=== PATIENT | male | born 1960 | race Caucasian/White ===

== ENCOUNTER 2016-11-27 12:23 | Inpatient (IN) | payer BC ==
[~2016-11-27] VITALS: Ht 188 cm; Wt 122.5 kg
--- NOTE | 2016-11-27 12:23 | NUR ---
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 NAD NOTED. PT AAO X4, AMB WITH STEADY GAIT. RR EVEN AND UNLBAORED. PLACED ON MONITOR. PENDING MD HARRISON.
--- NOTE | 2016-11-27 12:35 | NUR ---
CJ JOINERY SETTER OUT AT BEDSIDE FOR EVAL.
[2016-11-27 12:39] LABS: BASOPHILS # (AUTO) 0.3 /CMM (0.0-0.2); BASOPHILS % (AUTO) 3.8 % (0.0-2.0); EOSINOPHILS # (AUTO) 0.1 /CMM (0.0-0.7); EOSINOPHILS % (AUTO) 1.5 % (0.0-6.0); HEMATOCRIT 44 % (39-51); HEMOGLOBIN 14.8 g/dL (13.5-17.5); LYMPHOCYTES # (AUTO) 2.2 /CMM (0.8-4.8); LYMPHOCYTES % (AUTO) 23.7 % (20.0-44.0); MEAN CORPUSCULAR HEMOGLOBIN 28 PG (26.0-33.0); MEAN CORPUSCULAR HGB CONC 34 g/dl (31.0-36.0); MEAN CORPUSCULAR VOLUME 84 fL (80-96); MONOCYTES # (AUTO) 0.7 /CMM (0.1-1.30); MONOCYTES % (AUTO) 7.7 % (2.0-12.0); NEUTROPHILS # (AUTO) 5.8 /CMM (1.8-8.9); NEUTROPHILS % (AUTO) 63.3 % (43.0-81.0); PLATELET COUNT (AUTO) 230 /CMM (150-450); RDW COEFFICIENT OF VARIATION 13.6 (11.5-15.0); RED BLOOD CELL COUNT(AUTO) 5.27 MIL/uL (4.5-6.0); WHITE BLOOD COUNT (AUTO) 9.1 K/uL (4.3-11.0)
[2016-11-27 12:46] LABS: CALCIUM, SERUM 8.2 mg/dL (8.5-10.1); CARBON DIOXIDE 25 mmol/L (21-32); CHLORIDE 104 mmol/L (98-107); GLUCOSE 89 mg/dL (74-106); POTASSIUM 3.4 mmol/L (3.5-5.1); SODIUM SERUM 138 mmol/L (136-145); UREA NITROGEN, BLOOD 9 mg/dL (7-18)
[2016-11-27 12:50] LABS: INR 1.02 (0.87-1.13); PROTHROMBIN TIME 10.6 SECS (9.5-12.7)
[2016-11-27 12:55] LABS: TROPONIN I < 0.017 ng/mL (0.00-0.056)
[2016-11-27] MEDS ORDERED: NITROGLYCERIN 0.4 MG/TAB BOTTLE ONE (12:55)
[2016-11-27] MEDS ORDERED: ASPIRIN 325 MG TABLET ONE (12:55)
[2016-11-27] MEDS ORDERED: NITROGLYCERIN 0.4 MG/TAB BOTTLE SL ONE (13:00)
[2016-11-27] MEDS ORDERED: ASPIRIN 325 MG TABLET PO ONE (13:00)
[2016-11-27] MEDS ORDERED: IOHEXOL-350 100 ML VIAL IV ONE (14:21)
[2016-11-27] MEDS ORDERED: IV NS 0.9% 250 ML IV ONE (14:21)
[2016-11-27] MEDS ORDERED: GABA-536 PO (14:36)
[2016-11-27] MEDS ORDERED: METR250T PO (14:36)
[2016-11-27] MEDS ORDERED: ESCI20TA PO (14:36)
[2016-11-27] MEDS ORDERED: AMLO10TA2 PO (14:36)
--- NOTE | 2016-11-27 14:53 | NUR ---
PT BACK FROM CT SCAN
--- NOTE | 2016-11-27 15:00 | NUR ---
REPORT GIVEN TO ZANDRA HOUSTON FOR PAOLA
[2016-11-27] MEDS ORDERED: EMTR1TAB12 PO (15:03)
[2016-11-27] MEDS ORDERED: [UNRECOGNIZED DRUG - OTHER] PO (15:03)
--- NOTE | 2016-11-27 15:30 | NUR ---
VIDEOGRAPHER NOTES PATIENT CAME ON A GURNEY FROM ER. PATIENT ABLE TO AMBULATE FROM GURNEY TO BED. A/OX3, VERBALLY RESPONSIVE, IN NO APPARENT DISTRESS. PATIENT DENIES SOB, DENIES CHEST PAIN. ALL NEEDS MET, CALL LIGHT WITHIN REACH. PATIENT ORIENTED TO ROOM AND UNIT. SKIN CLEAR AND INTACT, ON TELE MONITORING SR 80. IV LINE ON LAC AND RIGHT HAND PATENT. AWAITING ORDERS,WILL CONT TO MONITOR.
[2016-11-27] MEDS ORDERED: ZOLPIDEM TARTRATE 5 MG TABLET PO PRN (16:00)
[2016-11-27] MEDS ORDERED: Z GUARD REMEDY 2 OZ OINT TP PRN (16:00)
[2016-11-27] MEDS ORDERED: POTASSIUM CHLORIDE 20 MEQ TAB.PRT.SR PO ONE (16:00)
[2016-11-27] MEDS ORDERED: ONDANSETRON HCL/PF 4 MG/2 ML VIAL IVP PRN (16:00)
[2016-11-27] MEDS ORDERED: MAGNESIUM HYDROXIDE 30 ML UDC PO PRN (16:00)
[2016-11-27] MEDS ORDERED: MAG HYDROX/AL HYDROX/SIMETH 30 ML UDC PO PRN (16:00)
[2016-11-27] MEDS ORDERED: HYDROCODONE/APAP 5/325MG 1 EACH TABLET PO PRN (16:00)
[2016-11-27] MEDS ORDERED: ACETAMINOPHEN 325 MG TABLET PO PRN (16:00)
[2016-11-27] MEDS: GABAPENTIN 400 MG CAPSULE PO SCH ×2 (16:52→22:11)
[2016-11-27 17:00] VITALS: BP 126/74
--- NOTE | 2016-11-27 18:45 | NUR ---
METAL PUNCH PRESS OPERATOR CLOSING NOTES PATIENT IN BED, A/OX3, VERBALLY RESPONSIVE IN NO APPARENT DISTRESS. PATIENT DENIES PAIN, DENIES SOB. IV LINE ON RIGHT HAND PATENT. ALL DUE MEDS GIVEN ALL NEEDS MET. WILL ENDORSE CARE TO PM SHIFT. Addendum: 11/27/16 at 1936 by ZANDRA ZENG RN TELE MONITORING 71
--- NOTE | 2016-11-27 19:15 | NUR ---
WEB APPLICATIONS DEVELOPER NOTES RECEIVED PT SITTING IN BED,AWAKE, A/O X 4. VERBALLY RESPONSIVE. NO DISTRESS, NO SOB NOTED. RESPIRATION IS EVEN AND UNLABORED. ABLE TO VERBALIZE NEEDS. WITH VISITORS AT BED SIDE. IV SITE ON RIGHT HAND INTACT AND PATENT. NO S/S OF INFILTRATION NOTED. DENIES ANY PAIN OR DISCOMFORT AT THIS TIME. ALL NEEDS ATTENDED. KEPT COMFORTABLE. SAFETY PRECAUTIONS. CALL LIGHT WITHIN REACH. WILL CONTINUE TO MONITOR.
[2016-11-27 20:00] VITALS: BP 137/72
[2016-11-27] MEDS ORDERED: ENOXAPARIN SODIUM 40 MG/0.4 ML DISP.SYRIN SQ SCH (21:00)
--- NOTE | 2016-11-27 21:20 | NUR ---
PLACED A CALL TO DR. HOLLOWAY REGARDING PT'S CONCERN WITH FLAGYL AND SEPTRIN. STILL AWAITING FOR A CALL BACK.
--- NOTE | 2016-11-27 21:27 | NUR ---
RELAYED TO DR. HOLLOWAY REGARDING PT'S CONCERN REGARDING FLAGYL AND SEPTRIN, PER PT HE'S BEEN TAKING THOSE 2 ANTIBIOTICS AT HOME FOR BACTERIAL INFECTION, EXPLAINED TO THE PT THAT MARY ATN , THE OLDER WORKER SPECIALIST WHO ADMITTED HIM HELD THE MEDICATION. PT STILL INSISTING THAT HE WANTED TO TAKE THE MEDICATION. PER DR. HOLLOWAY OK TO RESUME FLAGYL AND SEPTRIN AND TO INFORM THE PHARMACY REGARDING SEPTRIN MEDICATION AND TO START SEPTRIN TOMORROW WITH NEW ORDERS NOTED, CARRIED OUT AND ACKNOWLEDGED. CHARGE NURSE ROSEMARIE CRONIN AND PT AWARE.
[2016-11-27] MEDS ORDERED: METRONIDAZOLE 250 MG TABLET PO SCH ×2 (21:30→22:00)
[2016-11-27] MEDS ORDERED: METRONIDAZOLE 250 MG TABLET ONE (21:32)
[2016-11-27] MEDS: METRONIDAZOLE 250 MG TABLET PO SCH (22:11)
--- NOTE | 2016-11-27 22:15 | NUR ---
PT SR 61 ON TELE MONITOR. STABLE AT THIS TIME. NO DISTRESS. NO SOB . DENIES ANY CHEST PAIN/ DISCOMFORT AT THIS TIME. ALL NEEDS ATTENDED. WILL CONT TO MONITOR. DANYELLE LIGHT WITHIN REACH.
[2016-11-28] VITALS: BP 123/73
[2016-11-28 04:00] VITALS: BP 148/82
[2016-11-28 06:23] LABS: BASOPHILS % (AUTO) 0.2 % (0.0-2.0); EOSINOPHILS # (AUTO) 0.1 /CMM (0.0-0.7); EOSINOPHILS % (AUTO) 1.5 % (0.0-6.0); HEMATOCRIT 39 % (39-51); HEMOGLOBIN 13.8 g/dL (13.5-17.5); LYMPHOCYTES # (AUTO) 1.4 /CMM (0.8-4.8); LYMPHOCYTES % (AUTO) 16.4 % (20.0-44.0); MEAN CORPUSCULAR HEMOGLOBIN 31 PG (26.0-33.0); MEAN CORPUSCULAR HGB CONC 35 g/dl (31.0-36.0); MEAN CORPUSCULAR VOLUME 89 fL (80-96); MONOCYTES # (AUTO) 0.3 /CMM (0.1-1.30); MONOCYTES % (AUTO) 3.3 % (2.0-12.0); NEUTROPHILS # (AUTO) 6.5 /CMM (1.8-8.9); NEUTROPHILS % (AUTO) 78.6 % (43.0-81.0); PLATELET COUNT (AUTO) 200 /CMM (150-450); RDW COEFFICIENT OF VARIATION 14.5 (11.5-15.0); RED BLOOD CELL COUNT(AUTO) 4.44 MIL/uL (4.5-6.0); WHITE BLOOD COUNT (AUTO) 8.3 K/uL (4.3-11.0)
--- NOTE | 2016-11-28 06:24 | NUR ---
BRANCH SERVICE SPECIALIST NOTES PT IN BED,RESTING COMFORTABLY AT THIS TIME. AROUSES EASILY, A/O X 4. VERBALLY RESPONSIVE. NO DISTRESS, NO SOB NOTED. RESPIRATION IS EVEN AND UNLABORED. ABLE TO VERBALIZE NEEDS. IV SITE ON RIGHT HAND INTACT AND PATENT. NO S/S OF INFILTRATION NOTED. DENIES ANY PAIN OR DISCOMFORT AT THIS TIME. ALL NEEDS ATTENDED. KEPT COMFORTABLE. SAFETY PRECAUTIONS. CALL LIGHT WITHIN REACH. WILL ENDORSE TO NEXT SHIFT FOR PAOLA.
[2016-11-28 06:36] LABS: CALCIUM, SERUM 7.9 mg/dL (8.5-10.1); CREATININE 0.8 mg/dL (0.6-1.3); MAGNESIUM 1.7 mg/dL (1.8-2.4); PHOSPHORUS 3.2 mg/dL (2.5-4.9); POTASSIUM 4.1 mmol/L (3.5-5.1)
[2016-11-28 06:59] VITALS: BP 130/80
[2016-11-28] MEDS ORDERED: PANTOPRAZOLE 40 MG TABLET.DR PO SCH (07:30)
--- NOTE | 2016-11-28 07:37 | NUR ---
MARBLE COPER: INITIAL NOTES RECEIVED PT A/O X4. NO DISTRESS NOTED. NO SOB NOTED. NO PAIN NOTED. NPO EXCEPT FOR MEDICATIONS. RESTING COMFORTABLY IN BED. CALL LIGHT WITHIN REACH.
[2016-11-28 08:00] VITALS: BP 130/80
[2016-11-28] MEDS: METRONIDAZOLE 250 MG TABLET PO SCH ×2 (08:40→12:27)
[2016-11-28] MEDS: GABAPENTIN 400 MG CAPSULE PO SCH ×2 (08:40→12:27)
[2016-11-28 08:41] VITALS: BP 130/80
[2016-11-28] MEDS ORDERED: EMTRICITABINE/TENOFOVIR 1 TAB PO SCH (09:00)
[2016-11-28] MEDS ORDERED: AMLODIPINE BESYLATE 10 MG TABLET PO SCH (09:00)
[2016-11-28] MEDS ORDERED: ASPIRIN 325 MG TABLET PO SCH (09:00)
[2016-11-28] MEDS ORDERED: ESCITALOPRAM OXALATE (10 MG) 10 MG TABLET PO SCH (09:00)
--- NOTE | 2016-11-28 10:25 | NUR ---
MED SURGE RN:NOTE PT SCHEDULED FOR STRESS TEST. UNABLE TO ADMINISTER MG AT THIS TIME. WILL ADMINISTER WHEN PT RETURNS FROM TEST.
[2016-11-28] MEDS ORDERED: SULFAMETH/TRIMETH 800/160 MG 1 UDTAB TABLET PO SCH (10:30)
[2016-11-28] MEDS: Magnesium 1GM/D5W 100ML PREMIX 100 ML IV SCH ×2 (11:31→12:59)
[2016-11-28] MEDS ORDERED: ASPI325T2 PO (11:50)
--- NOTE | 2016-11-28 14:32 | NUR ---
MED SURGE RN:NOTE MED SURGE RN: DISCHARGE NOTE RESIDENT ALERT AND ORIENTED X 4. TOOK ALL MEDICATIONS ORDERED ON TIME. NO ADVERSE REACTIONS NOTED. NO DISTRESS NOTED. NO SOB NOTED. VS STABLE. ATE LUNCH IN ROOM BEFORE D/C. EDUCATED ABOUT DISCHARGE INSTRUCTIONS, ALL FORMS SINGED AND COPIES TAKEN WITH THE PT. PT PICKED UP BY FAMILY MEMBER. AMBULATED WITH OUT ASSISTANCE. LEFT IN PRIVATE CAR. ALL BELONGINGS ACCOUNTED FOR.
== END 2016-11-28 14:25 | disposition home or self-care (01) | DRG 311 ==
LOC: ER 12:25 → TELE 15:22 → MED 11-28 09:56
PROVIDERS: ADMIT Nurse Practitioner Acute Care; ATTEND Nurse Practitioner Acute Care
DX: I24.9 Acute ischemic heart disease, unspecified (principal); E27.8 Other specified disorders of adrenal gland; Z68.34 Body mass index [BMI] 34.0-34.9, adult; E83.42 Hypomagnesemia; E87.6 Hypokalemia; Z98.84 Bariatric surgery status; Z79.899 Other long term (current) drug therapy; Z79.82 Long term (current) use of aspirin; K80.20 Calculus of gallbladder without cholecystitis without obstruction; K52.9 Noninfective gastroenteritis and colitis, unspecified; E66.9 Obesity, unspecified; I10 Essential (primary) hypertension
CPT/HCPCS: 36415; 71010-TC; 80048-TC; 80061-TC; 83735-TC; 84100-TC; 84484-TC; 85025-TC; 85378-TC; 85730-TC; 93350-TC; A4216; A4606; J1650; J3475; J7050; Q9967; Z7610